=== PATIENT | female | born 1995 | race Caucasian/White ===

== ENCOUNTER 2017-08-05 14:47 | Emergency (ER) | payer OTHER ==
[~2017-08-05] VITALS: Ht 170.2 cm; Wt 70.7 kg
[2017-08-05 14:57] VITALS: TEMP 36.9; Ht 170.2 cm; Wt 70.7 kg
--- NOTE | 2017-08-05 17:17 | EMERGENCY ROOM VISIT NOTE ---
History Report prepared by Aga: Naima Nieto Under the Supervision of: Dr. Edd Abraham M.D. First contact with patient: 16:53 Chief Complaint: HEADACHE Stated Complaint: HEADACHE THAT WILL NOT GO AWAY History of Present Illness The patient is a 22 year old female who presents to the Emergency Room with complaints of a persistent headache that began several months ago. She rates her discomfort a 7 out of 10 in severity. She reports that she has been seen at [facility] twice for her severe headache, noting they gave her Tylenol and Ibuprofen, which has not helped relieve her symptoms. The patient states that they suggested she get her eyes check, noting that her eye sight might be causing her ongoing headache. She notes that she had her eyes checked one week ago and she did not have any changes in her vision. The patient denies any fevers, chills, chest pain, congestion, dizziness, urinary symptoms, nausea, vomiting, diarrhea, or history of migraines. 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 A total of ten systems were reviewed and were otherwise negative. Past Medical & Surgical Medical Problems: (1) Abnormal bleeding in menstrual cycle Surgical Problems: (1) Hx of appendectomy Family History Hypertension Social History Smoking Status: Current Every Day Smoker Smokeless Tobacco Use: Unknown Alcohol Use: none Drug Use: none Marital Status: single Housing Status: lives with roommate Occupation Status: [employer] student Allergies Uncoded Allergies: PCN (Allergy, Mild, hives, 08/05/17) Physical Exam Vital Signs Date Time Temp Pulse Resp B/P (MAP) Pulse Ox O2 Delivery O2 Flow Rate FiO2 08/05/17 17:39 56 20 126/77 100 08/05/17 14:57 36.9 79 18 136/82 99 Room Air Physical Exam GENERAL: Awake, alert, well-appearing, in no acute distress HENT: Dry mucous membranes. Normocephalic, atraumatic. Oropharynx unremarkable. EYES: Normal conjunctiva. Sclera non-icteric. NECK: Supple. No nuchal rigidity. FROM. No JVD. RESPIRATORY: Clear to auscultation. CARDIAC: Regular rate, normal rhythm. Extremities warm and well perfused. Pulses equal. ABDOMEN: Soft, non-distended. No tenderness to palpation. No rebound or guarding. No masses. RECTAL: Deferred. MUSCULOSKELETAL: Chest examination reveals no tenderness. The back is symmetrical on inspection without obvious abnormality. There is no CVA tenderness to palpation. No joint edema. LOWER EXTREMITIES: Calves are equal size bilaterally and non-tender. No edema. No discoloration. NEURO: normal cerebellar function with [id number], alternating palms, heel- to-sendy. Steady gate. Normal sensorium. No sensory or motor deficits noted. SKIN: No rash or jaundice noted. Medical Decision & Procedures ED Course 1655: The patient was evaluated in room C6. A complete history and physical exam was performed. 1723: I reevaluated the patient. Discussed results and discharge instructions: she verbalized understanding and agreement. The patient is ready for discharge. Medical Decision I reviewed the patient's past medical history, medications, and the nursing notes as described above. Differential diagnosis: Etiologies such as migraine headache, meningitis, sinusitis, CO exposure, ICH, SAH, infection, tumor, headache, sinus thrombosis, arterial dissection, as well as others were entertained. The patient is a 22-year-old woman with a past medical history of irregular menstrual cycles lasting 2-3 months at a time and a chronic headache for the past 2 months evaluated in [facility] 2 with unremarkable findings presents emergency department to have it evaluated again after going to an outpatient [facility]APE[employer] [employer]IV[facility]IES SERVICES WORKER appointment today per hpi. Of note, the patient denies any worsening of her symptoms, she just thought she would come get it "checked out" since she was here for her [facility]APE[employer] [employer]IV[employer]IES SERVICES WORKER appointment. She has not taken any regular medications such as Tylenol or ibuprofen for the pain because she says they do not work. Reports it feels better when she presses on her temples. Denies vision changes, n/v, dizziness. Patient is very well-appearing, afebrile, stable vital signs. She is neurologically intact including normal cerebellar function with finger-to -nose, alternating palms, [id number]. She has a steady gait. Given well appearing and prolonged sx, unlikely to have emergent process. Discussed with the patient the option for a repeat workup including lab test and a CT of her head versus no acute workup at all given she is well-appearing with a normal exam and we will give her a neurology referral. Patient preferred the latter. Findings and plan for follow-up reviewed with patient. Patient agreeable and d/c 'd per discharge instructions. Medication Reconcilliation Current Medication List: was personally reviewed by me Blood Pressure Screening Patient's blood pressure: Normal blood pressure Blood pressure disposition: Did not require urgent referral Impression Primary Impression: Headache Scribe Attestation The scribe's documentation has been prepared under my direction and personally reviewed by me in its entirety. I confirm that the note above accurately reflects all work, treatment, procedures, and medical decision making performed by me. Departure Information Dispostion Home / Self-Care Referrals No Doctor, Assigned (PCP) Marley Murphy D.O. Forms HOME CARE DOCUMENTATION FORM, IMPORTANT VISIT INFORMATION Patient Instructions ED Headache Migraine, ED Headache Tension, Headache Pain, [facility] Additional Instructions Please follow up with your primary care physician in the week for re-evaluation. You may also contact neurology, Dr. Murphy, to arrange for an appointment for further evaluation. The cause of your symptoms are unclear at this time. Otherwise, your exam did not show signs of an emergent condition at this time. Acetaminophen or ibuprofen for pain as needed. Drink plenty of fluids to ensure hydration. Return to the emergency department for worsening symptoms as described in the accompanying instructions.
[2017-08-05 17:39] VITALS: BP 126/77; PULSE 56; O2SAT 100
== END 2017-08-05 17:41 | disposition home or self-care (01) ==
LOC: C.EDB 14:50 → C.EDC 17:41
DX: R51 Headache (principal); F17.200 Nicotine dependence, unspecified, uncomplicated; Z87.42 Personal history of other diseases of the female genital tract; Z88.0 Allergy status to penicillin

== ENCOUNTER → 2017-08-05 | Outpatient (CLI) | payer OTHER | END | disposition home or self-care (01) | LOC: C.LABSPEC 15:29 | PROVIDERS: ATTEND Physician Assistant | DX: R10.2 Pelvic and perineal pain (principal) ==